=== PATIENT | male | born 1995 | race Caucasian/White ===

== ENCOUNTER 2025-02-23 16:00 | Emergency (ER) | payer MEDICAID ==
[~2025-02-23] VITALS: Ht 167.6 cm; Wt 68.0 kg
[2025-02-23 16:07] VITALS: BP 118/75; PULSE 97; RESP 16; TEMP 36.7; O2SAT 98
== END 2025-02-23 17:57 | disposition left against medical advice (07) ==
LOC: ER 16:00
DX: M79.602 Pain in left arm (principal); Z53.21 Procedure and treatment not carried out due to patient leaving prior to being seen by health care provider